=== PATIENT | male | born 1960 | race Caucasian/White ===

== ENCOUNTER 2024-11-23 09:11 | Inpatient (IN) ==
--- NOTE | 2024-11-18 12:39 | Anesthesiology Consultation ---
Date of Service November 18, 2024 Assessment & Plan (1) Encounter for pre-operative examination: - Case discussed in detail with Dr. Cobb who advised given echocardiogram report 09/08/2024, patient is acceptable to proceed. - 09/07/24 EKG tracing not received, report as above. To assigned anesthesiologist discretion if EKG needs updated DOS. - discharge summary 09/08/24: "...chest pain. Hypertension. DM...hypertensive urgency. Renal cell carcinoma...initial investigations ruled out acute coronary syndrome...moderate coronary calcifications were noted.follow-up with cardiology for cardiac risk assessment and management remains essential...outpatient monitoring for renal cell carcinoma..." - hospitalist note 09/08/24: "...Lexiscan stress test without reversible ischemia. Radiologist raise [sic] concern for possible multivessel disease as this cannot be ruled out. Because of this reviewed imaging with cardiology. They felt Lexiscan was completely normal. They did not feel any further intervention or evaluation was needed...will be discharged home..." - check BSG am DOS. - semaglutide instructions: Patient informed by PAT RN to stop 7 days prior to surgery. - Per commercial collector on 11/18/24: No known infectious disease contacts, current infectious disease symptoms in past 10 days or COVID positive test result in the past 30 days. Chart Review Chart Review: Acceptable Risk for Surgery and Patient NOT seen in Pre Admission Testing History Surgery Operation Date: 11/23/24 10:50 Proposed Procedures p Laparoscopic Hand Assisted Radical Nephrectomy - Right - Cecil Khoury MD Height/Weight Height: 5 ft 9 in Weight: 89.811 kg Allergies Allergy/AdvReac Type Severity Reaction Status Date / Time No Known Allergies Allergy Verified 11/18/24 11:13 Medications Home Medications Medication Instructions Recorded Confirmed Last Taken amlodipine 10 mg tablet (Norvasc) 10 mg PO QAM 10/18/24 11/18/24 Unknown aspirin 81 mg tablet,delayed 81 mg PO QAM 10/18/24 11/18/24 Unknown release empagliflozin 10 mg tablet 10 mg PO QAM 10/18/24 11/18/24 Unknown (Jardiance) escitalopram oxalate 20 mg tablet 20 mg PO QAM 10/18/24 11/18/24 Unknown (Lexapro) lisinopril 40 mg tablet (Zestril) 40 mg PO QAM 10/18/24 11/18/24 Unknown magnesium 250 mg tablet 250 mg PO DAILY 10/18/24 11/18/24 Unknown rosuvastatin 40 mg tablet (Crestor) 40 mg PO QAM 10/18/24 11/18/24 Unknown semaglutide 1 mg/dose (4 mg/3 mL) 1 mg subcut WK 10/18/24 11/18/24 11/08/24 subcutaneous pen injector (Ozempic) vitamins A,C,J-nuou-ojadia 2,148 2 tab PO BID 10/18/24 11/18/24 Unknown mcg-113 mg-45 mg-17.4 mg tablet (PreserVision AREDS) Past Medical History Medical History Diabetes mellitus, type 2 Oral/Weekly Injectable Dyslipidemia GERD (gastroesophageal reflux disease) hx Hypertension Renal mass Reason for procedure 11/23/24 Past Surgical History Surgical History History of colonoscopy History of eye surgery Left pterygium removed Social History Smoking Status: Never smoker Do You Dip or Chew Tobacco: Yes (advised) Hx Alcohol Use: Yes alcohol intake frequency: a few times a week Hx Substance Use: No substance use type: does not use Testing Laboratory Results WBC: 7.6 H/H: 15/45 PLATELETS: 264,000 SODIUM: 141 POTASSIUM: 3.7 CHLORIDE: 109 CO2: 25 BUN: 14 CREATININE: 0.9 GLUCOSE: 117 Urine culture: no growth Electrocardiogram Date: 09/07/24 Report: "Sinus rhythm, Nonspecific T wave abnormality" Chest X-Ray Date: 09/07/24 *1 view* No acute process Echocardiogram Date: 09/08/24 EF 55% No obvious RWMA Grade I diastolic dysfunction No significant valvular pathology Stress Test Date: 09/08/24 ECG during Lexiscan infusion does not demonstrate significant ST segment depression or elevation Presumed artifact along the septal and inferior base No evidence of stress-induced ischemia or scar EF 57% "Evidence of transient ischemic dilation with differential which includes balanced multivessel disease, hypertension, cardiomyopathy and other processes Elevated LHR ratio (lungs to heart) of 0.46 which can be seen with multivessel coronary artery disease, left ventricular dysfunction, and other etiologies. It is also considered a predictor of adverse cardiac events" Other Testing Head CT 09/07/24 Negative for acute intracranial abnormality Chest CTA 09/07/24 No acute aortic pathology of the chest, abdomen or pelvis Right sided renal cell carcinoma. No definite evidence of metastatic disease
[~2024-11-23 09:11] MED LIST: ACETAMINOPHEN 1000 MG/100 ML IV IV ONE; DEXAMETHASONE SOD INJ 4 MG/ML VIAL ONE; GLYCOPYRROLATE 0.2 MG/ML VIAL ONE; LIDOCAINE 2% 2 ML VIAL/AMP(20MG/ML) INFIL ONE; LIDOCAINE 4% MPF LOCAL INJ 5 ML AMP ONE; MIDAZOLAM HCL 1 MG/ML 2ML VIAL ONE; ONDANSETRON INJ 2 MG/ML 2 ML VIAL ONE; PROPOFOL IV EMULSION 10 MG/ML 20 ML VIAL IV ONE; ROCURONIUM BROMIDE 10 MG/ML 5 ML VIAL IV ONE
[2024-11-23] MEDS: LR 15ML/HR IV SCH (09:48)
[2024-11-23] MEDS ORDERED: ONDANSETRON INJ 2 MG/ML 2 ML VIAL IV PRN ×2 (10:22→15:18)
[2024-11-23] MEDS ORDERED: PROMETHAZINE HCL 6.25 MG in SODIUM CHLORIDE 0.9% 50 ML IV PRN (10:22)
[2024-11-23] MEDS ORDERED: ATROPINE SULFATE 0.1 MG/ML 10ML SYR IV PRN (10:22)
[2024-11-23] MEDS ORDERED: HYDROmorphone INJ 2 MG/ML SYR/VIAL IV PRN (10:22)
--- NOTE | 2024-11-23 11:22 | History & Physical Report ---
Date of Service November 23, 2024 Assessment & Plan (1) Renal mass: Plan Right renal mass concerning for Renal cell carcinoma - plan for hand assisted laparoscopic radical nephrectomy risks, benefits, and expectations reviewed History of Present Illness Primary Care Provider: Isma Osman Right renal mass for lap nephrectomy Allergies Allergy/AdvReac Type Severity Reaction Status Date / Time No Known Allergies Allergy Verified 11/23/24 09:27 Home Medications Medication Instructions Recorded Confirmed Type amlodipine 10 mg tablet (Norvasc) 10 mg PO QAM 10/18/24 11/23/24 History aspirin 81 mg tablet,delayed 81 mg PO QAM 10/18/24 11/23/24 History release empagliflozin 10 mg tablet 10 mg PO QAM 10/18/24 11/23/24 History (Jardiance) escitalopram oxalate 20 mg tablet 20 mg PO QAM 10/18/24 11/23/24 History (Lexapro) lisinopril 40 mg tablet (Zestril) 40 mg PO QAM 10/18/24 11/23/24 History magnesium 250 mg tablet 250 mg PO DAILY 10/18/24 11/23/24 History rosuvastatin 40 mg tablet (Crestor) 40 mg PO QAM 10/18/24 11/23/24 History semaglutide 1 mg/dose (4 mg/3 mL) 1 mg subcut WK 10/18/24 11/23/24 History subcutaneous pen injector (Ozempic) vitamins A,C,I-agzz-ratyfk 2,148 2 tab PO BID 10/18/24 11/23/24 History mcg-113 mg-45 mg-17.4 mg tablet (PreserVision AREDS) Past Med/Surg History Problem List Encounter for pre-operative examination Renal mass Medical History Diabetes mellitus, type 2 Oral/Weekly Injectable Dyslipidemia GERD (gastroesophageal reflux disease) hx Hypertension Renal mass Reason for procedure 11/23/24 Surgical History History of colonoscopy History of eye surgery Left pterygium removed Social History Smoking Status: Never smoker Tobacco Type: Smokeless Tobacco (Dip or Chew) Second Hand Exposure: No; Do You Dip or Chew Tobacco: Yes (advised); Tobacco Cessation Education Requested by Patient: No Hx Alcohol Use: Yes Hx Substance Use: No Preferred Language: Thai Communication Ability: Effective Front End Alignment Specialist Required: No Beliefs That Will Affect Care: None Current Living Situation: Spouse Other Information That Helps Us Care for You: No Feels Safe at Home: Yes Safety Concerns: Feels Safe At This Time Assistive Devices: Other Assistive Devices Comment: [place] Physical Exam Constitutional: well developed and well nourished Neck: neck nontender Respiratory: normal respiratory effort; no respiratory distress and does not use accessory muscles Cardiovascular: Rate/Rhythm: regular rate Vessels: radial pulses present Extremities: no edema Gastrointestinal (Abdomen): Inspection/Auscultation: abdomen normal to inspection Percussion/Palpation: abdomen soft; abdomen nontender and no guarding Musculoskeletal: Head/Neck/Chest: normocephalic and head atraumatic Extremities: extremities normal to inspection Skin: no rashes and no lesions Trauma: no evidence of skin trauma Neurologic: awake; not obtunded Speech / Cognition: normal speech Motor/Sensory: no tremor Psychiatric: Orientation: alert and oriented x 3 Genitourinary: no CVA tenderness Lymphatic: no lymphadenopathy Results & Data Vital Signs (Past 12 Hours) Vital Signs Temp Pulse Resp BP Pulse Ox O2 Del Method 11/23/24 09:25 37.1 C 66 18 151/94 H 96 Room Air
[2024-11-23] MEDS ORDERED: HYDROmorphone INJ 2 MG/ML SYR/VIAL ONE (12:15)
[2024-11-23] MEDS ORDERED: SUGAMMADEX SODIUM 200 MG/2 ML VIAL IV ONE (12:22)
[2024-11-23] MEDS ORDERED: KETAMINE HCL 10MG/ML SYR ONE (12:29)
[2024-11-23] MEDS: BUPIVACAINE LIPOSOME 1.3% 266 MG/20 ML VIAL ONE (13:12)
[2024-11-23] MEDS: BUPIVACAINE 0.5 % 5 MG/1 ML MPF 30ML VIAL ONE (13:12)
[2024-11-23] MEDS ORDERED: ONDANSETRON INJ 2 MG/ML 2 ML VIAL ONE (13:17)
--- NOTE | 2024-11-23 13:29 | Operative Report ---
PG Post Operative Report Pre & Post Diagnosis Operation Date: 11/23/24 10:50 Pre-Op Diagnosis: 1. right Renal Mass Post-Op Diagnosis: 1. right Renal Mass I identified the patient and participated in the time-out.: Yes Procedure Operation Date: 11/23/24 10:50 Actual Procedures p Laparoscopic Hand Assisted Right Radical Nephrectomy(Not Applicable) - Franky Khoury MD Surgeon Cecil Khoury MD Nursery Laborer Kushal Francis, PAC Estimated Blood Loss 25 Findings Consistent with Post-Op Diagnosis Specimens Right kidney and perinephric fat Description of Procedure Patient was identified in the preoperative holding area and appropriate informed consents reviewed and completed he was transported operating suite. Upon arrival received appropriate anesthesia and preoperative antibiotics. He is placed in the left side down right side up lateral decubitus position and the bed was flexed and he was padded and braced appropriately before sterile prep and drape. I made a Boss style incision in the right lower quadrant approximately 5 cm below the umbilicus. This was approximately 8 cm in length and extended from the lateral border of the rectus out towards the lateral corner. I carried this carefully through Darrian's fascia followed by the external oblique fascia, the internal oblique fascia, and the transversalis fascia/peritoneum. The final layer was opened sharply and a finger sweep performed which confirmed that there were no adhesions in this area. I then expanded my incision through the peritoneum and muscle layers to match the skin incision. Anterior retraction allowed visualization of the colon and the lower pole of the kidney. I was able to incise the white line of Toldt and begin med ializing the colon across the lower pole of the kidney. I additionally was able to incise lateral to the kidney up towards the upper corner of the kidney. At that time I elected to place a GelPort retractor and I insufflated the abdomen utilizing a 12 mm port placed through the GelPort. Insufflation was achieved without difficulty and a camera inserted there revealed the anterior abdominal wall that was free of adhesions. 212 mm bindery assistant ports were placed lateral to the rectus border, 1 approximately 4 fingerbreadths below the costal margin another approximately 8 cm inferior to that. Both of these were placed directly onto my hand which was through the GelPort. We then began the laparoscopic portion of the case and I continued my medialization of the colon. I was able to identify the duodenum just behind it and I began to kocherized this and expose the medial aspect of the kidney. I continued my incision through the peritoneum from an area overlying the hilar structures to an area under the liver and out to the upper lateral corner where I previously had incised the lateral aspect of the peritoneum. I then came back to the inferior aspect of the kidney and I elevated it and identified the ureter and gonadal vein. We are able to identify the gonadal vein piercing into the inferior vena cava and expose the inferior vena cava. I carefully dissected out the lateral border of the cava utilizing the harmonic scalpel. I encountered a complex gonadal branch in this area but also the underlying renal vein was easily identified as well as the renal artery which was just at the superior margin of the vein. I was able to dissect above the renal vein onto the IVC and create a window superior, posterior, inferior to the vascular structures feeding and draining the kidney. After confirming that this was appropriately positioned I passed a solitary staple load and controlled the renal artery in the renal vein and a solitary firing load. I then placed an additional staple load between the adrenal gland and the kidney through the upper medial aspect of the kidney. I dissected around the remainder of the superior and lateral aspect of the kidney utilizing the harmonic scalpel. The posterior aspect was bluntly dissected and elevated off the underlying psoas muscle. The inferior aspect of the kidney and Gerota's fascia was incised utilizing the harmonic scalpel including control of the ureter. The specimen was then entirely freed and was collected through the GelPort. I passed off the table and then reinsufflated the abdomen. Hemostasis was excellent. The colon was lateralized into the space with the kidney had been. I then utilized a Ricky-Dagoberto device to close the 212 mm ports with a 0 Vicryl suture before removing the GelPort and beginning closure of the Boss's incision in 3 layers. The first layer was peritoneum and transversalis combined followed by the internal oblique followed by the external oblique. All layers were then infiltrated with a combination of Exparel and Marcaine. Skin was also infused with these medications. Skin was closed with a 4-0 Monocryl and Dermabond. There were no complications. He was reversed of anesthesia and taken to the recovery room in stable condition. Kushal Francis, PAC assisted from incision to closure. I attest to the content of the Intraoperative Record and any orders documented therein. Any exceptions are noted below.
[2024-11-23 14:24] LABS: Hematocrit (blood only) 43.7 % (42.0-52.0); Hemoglobin 14.3 g/dl (14.0-18.0); Mean Corpuscular Hemoglobin 28.8 pg (25.0-34.0); Mean Corpuscular Volume 87.9 fL (80.0-100.0); Platelet Count 204 K/uL (130-400); RDW Standard Deviation 45.1 fL (36.4-46.3); Red Blood Count 4.97 M/uL (4.70-6.10); White Blood Count 13.16 K/ul (4.8-10.8)
--- NOTE | 2024-11-23 14:34 | Anesthesiology Progress Note ---
Date of Service November 23, 2024 Anesthesia Post Procedure Vital Signs Vital Signs: Temp Pulse Pulse Resp BP Pulse Ox O2 Del Method 11/23/24 14:30 70 14 147/86 H 97 Room Air 11/23/24 14:20 73 12 153/88 H 97 Room Air 11/23/24 14:10 65 14 159/97 H 96 Room Air 11/23/24 14:00 36.6 C 65 16 157/93 H 93 Room Air 11/23/24 13:50 69 14 165/89 H 92 Room Air 11/23/24 13:40 69 12 169/95 H 100 Oxymask 11/23/24 13:30 36.2 C L 79 16 165/104 H 99 Oxymask 11/23/24 09:25 37.1 C 66 18 151/94 H 96 Room Air O2 Flow Rate 11/23/24 14:30 11/23/24 14:20 11/23/24 14:10 11/23/24 14:00 11/23/24 13:50 11/23/24 13:40 4 11/23/24 13:30 6 11/23/24 09:25 Transfer of Care Handoff Completed per policy Notes Mental Status: alert / awake / arousable Patient Amnestic to Procedure: Yes Nausea / Vomiting: adequately controlled Pain: adequately controlled Airway Patency, RR, SpO2: stable & adequate BP & HR: stable & adequate Hydration State: stable & adequate Anesthetic Complications: no major complications apparent
[2024-11-23 14:41] LABS: Anion Gap 6.0 (3-11); Blood Urea Nitrogen 12.0 mg/dl (6-23); Calcium 8.8 mg/dl (8.6-10.3); Carbon Dioxide 28.0 mmol/L (21-32); Chloride 106.0 mmol/L (98-107); Creatinine Clr Calc Pharmacy 82.0 ml/min; Glucose 167.0 mg/dl (70-99(Fasting)); Potassium 4.2 mmol/L (3.5-5.1); Sodium 140.0 mmol/L (136-145)
[2024-11-23 14:47] LABS: ALC (manual) 0.92 K/uL (1.2-3.4); ANC (manual) 12.24 K/uL (1.4-6.5)
[2024-11-23] MEDS ORDERED: PHARMACY GLYCEMIC MGMT CONSULT PRN (15:18)
[2024-11-23] MEDS ORDERED: HYDROmorphone INJ 0.5 MG/0.5 ML SYR IV PRN ×2 (15:18)
[2024-11-23 15:37] VITALS: RESP 16
[2024-11-23] MEDS: SODIUM CHLORIDE 0.9% 1,000 ML IV SCH (16:39)
[2024-11-23] MEDS: HEPARIN SOD 5,000 UNIT/0.5 ML VIAL SQ SCH (20:08)
[2024-11-23] MEDS: DOCUSATE SODIUM 100 MG CAP PO SCH (20:08)
[2024-11-23] MEDS: ACETAMINOPHEN 500 MG TAB PO PRN (20:08)
[2024-11-23] MEDS: INSULIN ASPART PER UNIT CHARGE SC SCH (21:59)
[2024-11-24 07:31] LABS: Hematocrit (blood only) 34.5 % (42.0-52.0); Hemoglobin 11.5 g/dl (14.0-18.0); Immature Granulocytes # (auto) 0.07 K/uL (0.01-0.20); Immature Granulocytes % (auto) 0.5 %; Mean Corpuscular Hemoglobin 29.3 pg (25.0-34.0); Mean Corpuscular Volume 88.0 fL (80.0-100.0); Platelet Count 250 K/uL (130-400); RDW Standard Deviation 45.2 fL (36.4-46.3); Red Blood Count 3.92 M/uL (4.70-6.10); White Blood Count 15.23 K/ul (4.8-10.8)
--- NOTE | 2024-11-24 07:40 | Urology Progress Note ---
Date of Service November 24, 2024 Assessment & Plan (1) Renal mass: Plan: Renal masssuspected renal cell carcinoma Postop day #1 status post right radical nephrectomy Await labs Continue ambulation Pending status throughout the morning, possible discharge home at lunch Admission and Anticipated Discharge Date Admission Date: November 23, 2024 Subjective Did okay overnight Has been ambulatory Pain around his incisions has been controlled but he is having some gas pain and referred pain to his right shoulder this morning consistent with expectations for laparoscopic surgery We took the catheter out last night and he has urinated adequately Labs are pending this morning Hemoglobin change was as expected for removal of the kidney Anticipated bump in creatinine which will gradually correct with time Physical Exam Physical Exam: Incisions appropriate Abdomen minimally distended Results & Data Vital Signs (Past 12 Hours) Vital Signs Temp Pulse Resp BP Pulse Ox O2 Del Method 11/24/24 07:34 36.8 C 66 16 134/83 94 Room Air 11/24/24 04:13 36.8 C 74 16 115/73 92 Room Air 11/23/24 23:15 36.7 C 80 16 120/79 92 Room Air PG Care Time/CCT Total # of Minutes Spent Total Time Spent with Patient: Total time spent is greater than 50% in coordination of care (as documented) at patient's floor/unit and/or counseling patient: Coding Level of Care Code None Diagnoses Renal mass N28.89
[2024-11-24 07:58] LABS: Hemoglobin A1C 6.7 % (4.5-5.6)
[2024-11-24 08:03] LABS: Anion Gap 11.0 (3-11); Blood Urea Nitrogen 21.0 mg/dl (6-23); Calcium 8.8 mg/dl (8.6-10.3); Carbon Dioxide 23.0 mmol/L (21-32); Chloride 103.0 mmol/L (98-107); Creatinine Clr Calc Pharmacy 55.6 ml/min; Glucose 214.0 mg/dl (70-99(Fasting)); Potassium 4.6 mmol/L (3.5-5.1); Sodium 137.0 mmol/L (136-145)
[2024-11-24] MEDS: ASPIRIN 81 MG ECTAB PO SCH (08:34)
[2024-11-24] MEDS: CEROVITE ADV FORMULA TAB PO SCH (08:34)
[2024-11-24] MEDS: ROSUVASTATIN CALCIUM 20 MG TAB PO SCH (08:34)
[2024-11-24] MEDS ORDERED: EMPAGLIFLOZIN 10 MG TAB PO SCH (09:00)
[2024-11-24] MEDS: ESCITALOPRAM OXALATE 20 MG TAB PO SCH (10:11)
--- NOTE | 2024-11-24 13:19 | Pharmacy Report ---
Pharmacy Glycemic Short Note 2 - Date of Service November 24, 2024 - Glycemic Short BSG Results (Last 24 hours): 11/23/24 11/23/24 11/23/24 13:33 13:58 15:58 Glucose 167 H POC Glucose 152 H 145 H 11/23/24 11/24/24 11/24/24 21:14 06:48 07:42 Glucose 214 H POC Glucose 194 H 213 H 11/24/24 11:29 Glucose POC Glucose 177 H OUTPATIENT ANTIDIABETIC REGIMEN: * empagliflozin 10 mg daily, semaglutide 1 mg SQ weekly ASSESSMENT: * 64 year old s/p surgery, pharmacy consulted for glycemic management. Received steroids intraoperatively yesterday, BSGs trending up last evening and this AM. Will tighten novolog parameters for today. PLAN FOR INPATIENT GLYCEMIC CONTROL: * Hold outpatient oral diabetes medications * Basal insulin * Lantus - hold * Bolus insulin * NovoLog per scale ACHS or Q6hrs while NPO * Goal Range: Low 110 mg/dL - High 140 mg/dL * Correction Factor: 30 mg/dL/unit * Nutritional / Prandial insulin per carb ratio of 1 unit per 15 grams CHO consumed
[2024-11-24 14:04] VITALS: BP 110/67; TEMP 97.9; O2SAT 92
--- NOTE | 2024-11-24 14:29 | Discharge Summary ---
Date of Service November 24, 2024 Admission HPI Per Admitting Provider Right renal mass for lap nephrectomy Principal Diagnosis Renal mass Discharge Exam Constitutional well developed and well nourished; no acute distress Respiratory normal respiratory effort; no respiratory distress and no labored breathing Gastrointestinal (Abdomen) Inspection/Auscultation: abdomen normal to inspection Musculoskeletal Head/Neck/Chest: normocephalic Neurologic moves all extremities and awake Psychiatric Orientation: alert and oriented x 3 Discharge Data Allergies Allergy/AdvReac Type Severity Reaction Status Date / Time No Known Allergies Allergy Verified 11/23/24 09:27 Procedures Performed Operation Date: 11/23/24 10:50 Actual Procedures p Laparoscopic Hand Assisted Right Radical Nephrectomy(Not Applicable) - Toni Khoury MD Hospital Course (1) Renal mass: Renal masssuspected renal cell carcinoma Postop day #1 status post right radical nephrectomy Await labs Continue ambulation Pending status throughout the morning, possible discharge home at lunch Patient reassessed this afternoonambulating, tolerating diet and pain improved He feels ready for discharge Expected clinical course reviewed, all questions answered Will arrange follow-up in clinic to review final pathology Total Time Total Time Spent Total Time Spent (In Minutes): 25 Discharge Plan Discharge Items Patient Disposition: Home - Self-Care Reason For Visit: Other Specified Disorders of Kidney and Ureter Discharge Diagnosis: Renal mass Activity: Per Instructions section Lifting: No more than 10 pounds Bathing Comment: Okay to shower after discharge, no tub bath or soaking Sexual Activity: Wait until after follow-up appointment Exercise/Sports: Wait until after follow-up appointment Driving/Machine Use: No driving while taking prescription pain medication Non-emergency contact: Urologist Call non-emergency contact if: your pain is not controlled, you have a fever, your temperature is above 101, your wound has increased redness, your wound has increased drainage and your wound pain has increased Follow-up/Referrals: Isma Osman M.D. [Primary Care Provider] - Diet: Carb Consistent or DM2 Addtl Attending Provider Instructions: Please take all medications as prescribed and keep all follow-ups as scheduled. Please call our office at [phone] with any questions, concerns or need to reschedule appointments for any reason. We are happy to assist you. Recovering at home: We recommend having someone with you for the first few days after surgery to help care for you. It is okay to shower tomorrow. Please avoid swimming, bathing or using hot tub until incisions are well healed. Avoid driving until you are not requiring pain medication any further. Walk at least a few times a day. Increase your distance, as you feel able. Stairs in your home are okay. Please avoid strenuous or sexual activity until your follow-up. We recommend using stool softener (i.e. Colace) to prevent constipation and straining, especially the first two weeks post operatively. Call [facility] at [phone] if you experience: Chest pain or trouble breathing (call [phone] or go to the hospital). Fever of 101F or higher Symptoms of infection at incision site, including redness or swelling, warmth, or bad-smelling drainage If you have catheter, and you notice: o Bloody urine or drainage that is dark red or has large clots (Please remember a small amount of blood is normal) o No drainage from the catheter for more than 6 hours o The catheter comes out of your bladder Pain that is not controlled with medicines Pending Studies at Discharge: Yes (pathology) Stand-Alone Forms: My [facility] [employer], Smoking Cessation Medications and DC Order Prescriptions: New oxycodone-acetaminophen [Percocet] 5-325 mg tablet 1 tab PO TID PRN (Reason: pain) Qty: 10 0RF Continued amlodipine [Norvasc] 10 mg tablet 10 mg PO QAM Jardiance 10 mg tablet 10 mg PO QAM lisinopril [Zestril] 40 mg tablet 40 mg PO QAM rosuvastatin [Crestor] 40 mg tablet 40 mg PO QAM escitalopram oxalate [Lexapro] 20 mg tablet 20 mg PO QAM aspirin 81 mg tablet,delayed release (DR/EC) 81 mg PO QAM magnesium 250 mg tablet 250 mg PO DAILY PreserVision AREDS 2,148 mcg-113 mg-45 mg-17.4mg tablet 2 tab PO BID Rx Instructions: administer with AM and PM meals Ozempic 1 mg/dose (4 mg/3 mL) pen injector 1 mg subcut WK Rx Instructions: Friday Discharge Orders: Discharge Order (Routine); Ordered 11/24/24 Ordered By: Saritha Castillo/Other Patient Handouts: Managing Type 2 Diabetes Admission Data Admit Date/Time: 11/23/24 13:37 Attending Provider: Cecil Khoury Admit Provider: Cecil Khoury Primary Care Provider: Isma Osman Coding Level of Care Code 28583 IN/OBS DISCH 30 MIN/LESS Diagnoses Renal mass N28.89
[2024-11-24 14:37] VITALS: PULSE 67
== END 2024-11-24 15:50 | disposition home or self-care (01) | DRG 658 ==
LOC: ASU 09:11 → 3W 13:37